=== PATIENT | male | born 1975 | race Caucasian/White ===

== ENCOUNTER 2016-09-12 12:13 | Emergency (ER) | payer SELFPAY | END 2016-09-12 13:29 | disposition home or self-care (01) | LOC: FER 12:13 | DX: R55 Syncope and collapse (principal); Z53.8 Procedure and treatment not carried out for other reasons | CPT/HCPCS: 93005 ==

== ENCOUNTER 2016-09-12 14:10 | Emergency (ER) | payer SELFPAY ==
[2016-09-12 15:14] LABS: BASOPHIL 0.2 % (0-2); EOSINOPHIL 2.7 % (0-5); HCT 39.3 % (42.0-52.0); HGB 12.4 g/dl (13.2-18.0); LYMPHOCYTE 22.4 % (15-48); MCH 28.3 pg (25.0-31.0); MCHC 31.6 g/dL (32.0-36.0); MCV 89.7 fL (78.0-100.0); MONOCYTE 6.4 % (0-12); MPV 10.4 fL (6.0-9.5); NEUTROPHIL 68.3 % (41-80); PLT 241 K/uL (150-400); RBC 4.38 M/uL (4.70-6.00); RDW 14.6 % (11.5-14.0); WBC 5.1 K/uL (4.0-10.5)
[2016-09-12 15:39] LABS: ALBUMIN 4.5 g/dL (3.5-5.0); BILIRUBIN - TOTAL 0.6 mg/dL (0.1-1.0); CREATININE 0.8 mg/dL (0.7-1.2); GLOBULIN (CALCULATION) 2.8 g/dL (2.2-4.2); POTASSIUM 4.2 mmol/L (3.5-5.1); TOTAL PROTEIN 7.3 g/dL (6.4-8.3)
[2016-09-12 16:12] LABS: BILIRUBIN NEGATIVE (NEGATIVE); BLOOD NEGATIVE Ery/uL (NEGATIVE); CLARITY CLEAR (CLEAR); COLOR YELLOW (YELLOW); GLUCOSE (U) NORMAL (NORMAL); KETONE (U) NEGATIVE (NEGATIVE); LEUKOCYTES NEGATIVE Leu/uL (NEGATIVE); NITRITE NEGATIVE (NEGATIVE); PROTEIN NEGATIVE (NEGATIVE); pH 7.5 (5.0-9.0)
[2016-09-12 16:23] LABS: AMPHETAMINES NEGATIVE (NEGATIVE); BARBITURATES NEGATIVE (NEGATIVE); BENZODIAZEPINES POSITIVE (NEGATIVE); COCAINE NEGATIVE (NEGATIVE); MARIJUANA (THC) NEGATIVE (NEGATIVE); METHADONE NEGATIVE (NEGATIVE); TRICYCLIC ANTIDEPRESSANT NEGATIVE (NEGATIVE)
== END 2016-09-12 18:33 | disposition home or self-care (01) ==
LOC: FER 14:10
PROVIDERS: Nurse Practitioner
DX: R55 Syncope and collapse (principal); F19.90 Other psychoactive substance use, unspecified, uncomplicated; Z87.820 Personal history of traumatic brain injury; Z79.891 Long term (current) use of opiate analgesic
CPT/HCPCS: 36415; 80053; 80305; 81003; 82150; 83690; 85025; G0480

== ENCOUNTER 2016-09-13 10:14 | Emergency (ER) | payer SELFPAY ==
[2016-09-13 12:15] LABS: BASOPHIL 0.2 % (0-2); EOSINOPHIL 2.6 % (0-5); HCT 40.9 % (42.0-52.0); HGB 13.1 g/dl (13.2-18.0); LYMPHOCYTE 18.6 % (15-48); MCH 28.8 pg (25.0-31.0); MCV 89.9 fL (78.0-100.0); MONOCYTE 5.6 % (0-12); MPV 10.5 fL (6.0-9.5); PLT 249 K/uL (150-400); RBC 4.55 M/uL (4.70-6.00); RDW 14.4 % (11.5-14.0); WBC 4.6 K/uL (4.0-10.5)
[2016-09-13 12:16] LABS: BILIRUBIN NEGATIVE (NEGATIVE); BLOOD NEGATIVE Ery/uL (NEGATIVE); CLARITY CLEAR (CLEAR); COLOR YELLOW (YELLOW); GLUCOSE (U) NORMAL (NORMAL); KETONE (U) NEGATIVE (NEGATIVE); LEUKOCYTES NEGATIVE Leu/uL (NEGATIVE); NITRITE NEGATIVE (NEGATIVE); PROTEIN NEGATIVE (NEGATIVE); UROBILINOGEN 0.2 mg/dL (0.2-1.0); pH 7.5 (5.0-9.0)
[2016-09-13 12:28] LABS: AMPHETAMINES NEGATIVE (NEGATIVE); BARBITURATES NEGATIVE (NEGATIVE); BENZODIAZEPINES POSITIVE (NEGATIVE); COCAINE NEGATIVE (NEGATIVE); MARIJUANA (THC) NEGATIVE (NEGATIVE); METHADONE NEGATIVE (NEGATIVE); TRICYCLIC ANTIDEPRESSANT NEGATIVE (NEGATIVE)
[2016-09-13 12:36] LABS: CREATININE 0.7 mg/dL (0.7-1.2); POTASSIUM 4.5 mmol/L (3.5-5.1)
== END 2016-09-13 13:09 | disposition home or self-care (01) ==
LOC: FER 10:14
PROVIDERS: Emergency Medicine
DX: R55 Syncope and collapse (principal); S00.412A Abrasion of left ear, initial encounter; S00.81XA Abrasion of other part of head, initial encounter; G89.29 Other chronic pain; M54.2 Cervicalgia; Z87.828 Personal history of other (healed) physical injury and trauma; W19.XXXA Unspecified fall, initial encounter; Y92.69 Other specified industrial and construction area as the place of occurrence of the external cause; Y99.0 Civilian activity done for income or pay
CPT/HCPCS: 36415; 70450; 80048; 80305; 81003; 85025; 93005